=== PATIENT | female | born 1990 | race Caucasian/White ===

== ENCOUNTER 2022-12-02 05:56 | Day surgery (SDC) | payer BC ==
[2022-11-30 13:50] VITALS: BMI 41.9
[2022-12-01 12:31] LABS: Hemoglobin 10.6 g/dL (12.0-15.5); Mean Corpuscular HGB CONC 30.2 g/dL (32.0-36.0); Mean Corpuscular Hemoglobin 25.3 pg (27.0-33.0); Mean Corpuscular Volume 83.8 fl (81.6-98.3); Platelet Count 330 10x3/uL (150-450); RBC Distribution Width 13.8 % (11.5-14.5); Red Blood Cell (RBC) Count 4.19 10x6/uL (3.90-5.03); White Blood Cell (WBC) Count 7.9 10x3/uL (3.5-10.5)
[2022-12-01 12:50] LABS: BHCG - Serum Negative (NEGATIVE); Pregs Control Background? CLEAR/WHITE (CLR/WHITE); Pregs Control Bar Appear? YES (CONTROL BAR)
[2022-12-02] MEDS ORDERED: Bupivacaine HCl 0.5%/Epinephrine 1:200,000/PF 30 ml Vial ONE (06:31)
[2022-12-02] MEDS ORDERED: Gabapentin 300 MG CAP ONE (06:33)
[2022-12-02] MEDS ORDERED: CeleCOXIB 100 MG CAP ONE ×2 (06:34→06:35)
[2022-12-02] MEDS ORDERED: Midazolam HCl 2 mg/2 ml Vial ONE (06:43)
[2022-12-02] MEDS ORDERED: Lidocaine 1% PF 5 ML VIAL ONE (06:43)
[2022-12-02] MEDS ORDERED: Ondansetron PF 4 MG/2 ML Vial ONE ×2 (06:43→11:15)
[2022-12-02] MEDS ORDERED: Ketorolac Tromethamine 30 MG/ML VIAL ONE (06:43)
[2022-12-02] MEDS ORDERED: Rocuronium Bromide 10 MG/ML (10ML VIAL) ONE (06:43)
[2022-12-02] MEDS ORDERED: PROPOFOL 20 ML ONE (06:43)
[2022-12-02] MEDS ORDERED: Fentanyl 250 MCG/5 ML VIAL ONE (06:43)
[2022-12-02] MEDS ORDERED: Glycopyrrolate 0.2 MG/ML 5 ML SYRINGE ONE (06:43)
[2022-12-02] MEDS ORDERED: PHENYLEPHRINE-NS 100 MCG/ML 10 ML SYRINGE ONE (06:44)
[2022-12-02] MEDS ORDERED: Phenylephrine 10 MG/ML VIAL ONE (06:45)
[2022-12-02] MEDS ORDERED: CeleCOXIB 100 MG CAP PO SCH (07:00)
[2022-12-02] MEDS ORDERED: Famotidine/PF 20 mg/2ml Vial ONE (07:00)
[2022-12-02] MEDS ORDERED: CEFAZOLIN 2 GM VIAL ONE (07:07)
[2022-12-02] MEDS ORDERED: HYDROcodone/Acetaminophen 5/325 mg Tablet ONE (11:22)
== END 2022-12-02 16:20 | disposition home or self-care (01) ==
LOC: CSHSDC 05:56
PROVIDERS: ATTEND Obstetrics & Gynecology
PROC: 0UT74ZZ Resection of Bilateral Fallopian Tubes, Percutaneous Endoscopic Approach (ICD-10-PCS; principal; 2022-12-02)
PROC: 0UT24ZZ Resection of Bilateral Ovaries, Percutaneous Endoscopic Approach (ICD-10-PCS; principal; 2022-12-02)
PROC: 0UT94ZZ Resection of Uterus, Percutaneous Endoscopic Approach (ICD-10-PCS; principal; 2022-12-02)
DX: N80.03 Adenomyosis of the uterus (principal); D27.0 Benign neoplasm of right ovary; N94.6 Dysmenorrhea, unspecified; N73.6 Female pelvic peritoneal adhesions (postinfective); Z90.49 Acquired absence of other specified parts of digestive tract; N83.8 Other noninflammatory disorders of ovary, fallopian tube and broad ligament; Z87.59 Personal history of other complications of pregnancy, childbirth and the puerperium; Z98.84 Bariatric surgery status; Z90.09 Acquired absence of other part of head and neck; E66.9 Obesity, unspecified; Z68.41 Body mass index [BMI] 40.0-44.9, adult; Z79.899 Other long term (current) drug therapy
CPT/HCPCS: 84703; 85027; 86850; 86900; 86901; 88307; C1776; J1885; J2250; J2370; J2405; J2704; J3010; S0028